=== PATIENT | female | born 1955 | race Hispanic/Latino ===

== ENCOUNTER 2017-01-17 06:23 | Day surgery (SDC) | payer BC ==
[2017-01-09 08:58] VITALS: BMI 24.2
[2017-01-17] MEDS ORDERED: Propofol 10 mg/ml Inj (20 ML) ONE (07:52)
[2017-01-17] MEDS ORDERED: Midazolam 2 MG/2 ML VIAL ONE (07:53)
[2017-01-17] MEDS ORDERED: Lidocaine 1% Inj (20ml) ONE (07:53)
[2017-01-17] MEDS ORDERED: Atropine 0.4 mg/ml Inj (1 mL) ONE (08:34)
[2017-01-17] MEDS ORDERED: Sodium Chloride 0.9% 1,000 ML IV SCH (09:00)
[2017-01-17 09:04] VITALS: O2SAT 100
[2017-01-17 09:55] VITALS: BP 124/77; PULSE 72; RESP 18; TEMP 98
== END 2017-01-17 12:22 | disposition home or self-care (01) ==
LOC: ENDO 06:23
PROVIDERS: ATTEND Internal Medicine
DX: K31.7 Polyp of stomach and duodenum (principal); K29.50 Unspecified chronic gastritis without bleeding; K57.30 Diverticulosis of large intestine without perforation or abscess without bleeding; K64.8 Other hemorrhoids; K59.00 Constipation, unspecified
CPT/HCPCS: 43239; 45378; 88305; 88342; J2250; J2704; J7040 ×2